=== PATIENT | male | born 1970 | race Caucasian/White ===

== ENCOUNTER 2018-07-20 23:57 | Inpatient (IN) | payer OTHER ==
--- NOTE | 2018-07-21 00:02 | PDOC ---
History of Present Illness - General Chief Complaint: Shortness of Breath Stated Complaint: SOB/ANXIETY - History of Present Illness Initial Comments: This 48-year-old man with a history of HTN/DM (neither treated for the last year since 75 lb intentional weight loss), long-time smoker presents with approximately one month history of intermittent episodes of palpitations/chest and left arm discomfort/anxiety. Episodes can occur during the day or can awaken patient from sleep. Dyspnea has increased in the last few weeks and patient has had cough productive of whitish sputum intermittently for the last week. Shortness of breath worse when patient is supine, better when he is sitting up. He also describes intermittent bilateral ankle swelling, mainly occurring when patient is in the sitting position for prolonged period. Patient believes he has been having panic attacks although prior to a month ago he states he only occasionally had mild anxiety. No recent new stressors or reason for acute anxiety. No recent acute febrile illness. Patient denies previous cardiac history: States that he has always been told that his EKG was "okay" (for example, taken prior to colonoscopy). Patient has had a history of hyperlipidemia but stopped taking his statin medication when his hypertension/DM improved with weight loss. No history of CHF or thromboembolic disease. 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; lives at home with his family Past History - Past Medical History Allergies/Adverse Reactions: Allergies Allergy/AdvReac Type Severity Reaction Status Date / Time No Known Allergies Allergy Unverified 07/20/18 23:58 Home Medications: Ambulatory Orders NK [No Known Home Medication] 07/20/18 Review of Systems - Review of Systems Able to Perform ROS?: Yes Comments:: 12 point review of systems is negative except for what is noted in the history of present illness *Physical Exam - Physical Exam Comments: GENERAL: Adult male, alert and oriented 3, in mild distress; vital signs as noted HEAD: Normal with no signs of trauma. EYES: PERRLA, EOMI, sclera anicteric, conjunctiva clear. ENT: Ears normal, nares patent, oropharynx clear without exudates. Moist mucous membranes. NECK: Normal range of motion, supple without lymphadenopathy, JVD, or masses. LUNGS: Bilateral expiratory wheezing throughout both lung crooks. HEART:Regular rate and rhythm, normal S1 and S2 without murmur, rub or gallop. ABDOMEN:.normal bowel sounds No guarding,tenderness or rebound.No masses No distention. EXTREMITIES: Normal range of motion, no edema. No clubbing or cyanosis. No erythema, or tenderness. NEUROLOGICAL: Cranial nerves II through XII grossly intact. Normal speech. No focal neurological deficits. MUSCULOSKELETAL: Back non-tender to palpation, no CVA tenderness SKIN: Warm, Dry, normal turgor, no rashes or lesions noted. 12-lead electrocardiogram performed and interpreted by me: Normal sinus rhythm at 89 bpm; multifocal PVCs seen; T-wave inversions V5/V6. QTc 469 ms; no previous EKG tracing available for comparison Verbal chest x-ray performed: Preliminary interpretation-borderline cardiomegaly ; prominent pulmonary vasculature with cephalization of flow. No infiltrates/ effusions or other acute abnormalities seen. ED Treatment Course - LABORATORY CBC & Chemistry Diagram: 07/21/18 01:10 07/21/18 01:10 Medical Decision Making - Medical Decision Making This 48-year-old man with multiple risk factors for coronary artery disease but no previous history of acute coronary syndrome or CHF presents with one-month history of intermittent palpitations/chest pain and one week history of dyspnea/ cough productive of whitish sputum. Exam notable for expiratory wheezing bilaterally; there is minimal ankle edema bilaterally. EKG notable for T-wave inversions laterally and PVCs but no other acute findings (no previous EKG tracing available) Laboratory evaluation notable for BUN of 26 /creatinine 1.3. Potassium is normal at 4.2; CBC is unremarkable BNP of 1479; troponin is elevated 0.09. D- dimer is also mildly elevated at 674. Lasix 40mg IV given Clinical presentation most consistent with evidence of CHF and elevated troponin. Although troponin may be reflective of demand ischemia, patient will need admission for further evaluation of his dyspnea/treatment of CHF and serial enzymes to evaluate for acute ischemic process. 07/21/18 03:41 Case discussed with of [facility] hospitalist service. Patient will be admitted to telemetry under [facility] service. Repeat troponin scheduled for 4 AM. Meanwhile, patient will have CT angiogram to fully rule out pulmonary embolism and to evaluate CHF/other reasons for patient's progressive dyspnea. Brisk diuresis (approximately 2.5 L) after Lasix 40 mg IV 07/21/18 04:43 CT angiogram performed. Patient states that he had mild panic attack that resolved spontaneously during the study. He then experienced some nausea which resolved after several minutes. No increase in shortness of breath, lip/tongue swelling, rash noted. Patient notes significant decrease in dyspnea/chest pressure since diuresis. 07/21/18 05:59 Repeat troponin stable at 0.10 CT angiogram preliminary reading by Imaging account resolution expert: No evidence of pulmonary emboli there are small bilateral pleural effusions (greater on right) , basilar areas of atelectasis with minimal paraseptal emphysema. No other significant findings. The patient continues to be more comfortable without chest pressure/pain, shortness of breath or other new symptoms. informed of findings and patient's clinical condition. Patient will be admitted here at [facility], telemetry bed([id number] 07/21/18 06:08 Dr. Grant, cardiology contacted and case discussed with him. Dr. Rod or from the group will see the patient later this morning. The patient informed of findings; shortness of breath continues to be better than on admission. He states that he was awakened earlier with another panic attack. He is also bothered by abdominal wall spasms. Patient will be given Xanax 0.5 mg now for anxiety/panic attack *DC/Admit/Observation/Transfer Diagnosis at time of Disposition: Elevated troponin CHF (congestive heart failure) Qualifiers: Heart failure type: unspecified Heart failure chronicity: acute Qualified Code( s): I50.9 - Heart failure, unspecified - Discharge Dispostion Condition at time of disposition: Stable Decision to Admit order: Yes - Referrals - Patient Instructions - Post Discharge Activity
[2018-07-21 01:48] LABS: BASO % 0.6 % (0-2.0); EOS % 2.2 % (0-4.5); HEMATOCRIT 40.7 % (35.4-49); HEMOGLOBIN 14.7 GM/dL (11.7-16.9); LYMPH % 31.8 % (8-40); MCH 33.3 pg (25.7-33.7); MEAN CELL VOLUME 92.3 fl (80-96); MEAN PLT VOLUME 9.9 fl (7.5-11.1); MONO % 9.3 % (3.8-10.2); NEUT % 56.1 % (42.8-82.8); PLATELET COUNT 138 K/MM3 (134-434); RBC 4.41 M/mm3 (4.00-5.60); RDW 13.7 % (11.9-15.9); WHITE BLOOD COUNT 6.8 K/mm3 (4.0-10.0)
[2018-07-21 01:52] LABS: URINE APPEARANCE CLEAR; URINE BILIRUBIN NEGATIVE (<2.0 mg/dL); URINE COLOR LTYELLOW; URINE GLUCOSE (UA) NEGATIVE (NEGATIVE); URINE KETONE NEGATIVE (NEGATIVE); URINE LEUK ESTERASE NEGATIVE (NEGATIVE); URINE NITRITE NEGATIVE (NEGATIVE); URINE PROTEIN NEGATIVE (NEGATIVE)
[2018-07-21 02:03] LABS: INR 1.06 (0.83-1.09); PROTHROMBIN TIME (PATIENT) 12.5 SEC (9.7-13.0)
[2018-07-21 02:16] LABS: ALBUMIN 3.7 g/dl (3.4-5.0); ALK PHOS 89 U/L (45-117); ANION GAP 7 MMOL/L (8-16); BILIRUBIN,TOTAL 0.6 mg/dL (0.2-1); BLOOD UREA NITROGEN 26 mg/dL (7-18); CALCIUM 8.3 mg/dL (8.5-10.1); CHLORIDE 110 mmol/L (98-107); CO2 23 mmol/L (21-32); CREATININE 1.3 mg/dL (0.55-1.3); GLUCOSE,RANDOM 82 mg/dL (74-106); POTASSIUM 4.2 mmol/L (3.5-5.1); SGOT/AST 22 U/L (15-37); SGPT/ALT 52 U/L (13-61); SODIUM 140 mmol/L (136-145); TOT PROT 6.2 g/dl (6.4-8.2)
[2018-07-21] MEDS ORDERED: FUROSEMIDE 40 MG/4 ML INJECTABLE VIAL IVPUSH ONE (02:20)
[2018-07-21] MEDS ORDERED: FUROSEMIDE 40 MG/4 ML INJECTABLE VIAL ONE (02:22)
[2018-07-21] MEDS ORDERED: ASPIRIN 81 MG CHEWABLE TABLETS PO ONE (02:33)
[2018-07-21] MEDS ORDERED: ASPIRIN 81 MG CHEWABLE TABLETS ONE (03:11)
[2018-07-21] MEDS ORDERED: ALPRAZolam 0.25 MG TABLET PO ONE ×2 (06:08→22:11)
[2018-07-21] MEDS ORDERED: ALPRAZolam 0.25 MG TABLET ONE (06:12)
--- NOTE | 2018-07-21 08:50 | HP ---
CHIEF COMPLAINT: Shortness of breath PCP: Dr. Mejia HISTORY OF PRESENT ILLNESS: 48 year-old male with a PMH significant for HTN, HLD, NIDDM, addiction to pain medications, anxiety/panic disorder, and current smoker. Patient presented to the ED with a complaint of shortness of breath. Patient reports that about two weeks ago he starting coughing up large amounts of clear sputum. He felt like he could not take a deep breath, could not lie flat, became dyspneic on exertion , and he noticed dependent positional lower extremity edema. He has experienced chest pain and palpitations for months but he has attributed these symptoms to his panic disorder. Over the past year the patient lost 75 pounds and stopped taking his diabetic medications and lisinopril that he had been on. Patient denies fever, sweats, chills. 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 Smoking: current every day Alcohol: occasional Drugs: marijuna every few days Family History: Allergies No Known Allergies Allergy (Unverified 07/20/18 23:58) HOME MEDICATIONS: Home Medications Medication Instructions Recorded NK [No Known Home Medication] 07/20/18 REVIEW OF SYSTEMS CONSTITUTIONAL: Absent: fever, chills, diaphoresis, generalized weakness, malaise, loss of appetite, weight change HEENT: Absent: rhinorrhea, nasal congestion, throat pain, throat swelling, difficulty swallowing, mouth swelling, ear pain, eye pain, visual changes CARDIOVASCULAR: +chest pain, palpitations, SOB, [place], lower extremity edema Absent: chest pain, syncope, palpitations, irregular heart rate, lightheadedness , peripheral edema RESPIRATORY: Absent: cough, shortness of breath, dyspnea with exertion, orthopnea, wheezing, stridor, hemoptysis GASTROINTESTINAL: Absent: abdominal pain, abdominal distension, nausea, vomiting, diarrhea, constipation, melena, hematochezia GENITOURINARY: Absent: dysuria, frequency, urgency, hesitancy, hematuria, flank pain, genital pain MUSCULOSKELETAL: Absent: myalgia, arthralgia, joint swelling, back pain, neck pain SKIN: Absent: rash, itching, pallor HEMATOLOGIC/IMMUNOLOGIC: Absent: easy bleeding, easy bruising, lymphadenopathy, frequent infections ENDOCRINE: Absent: unexplained weight gain, unexplained weight loss, heat intolerance, cold intolerance NEUROLOGIC: Absent: headache, focal weakness or paresthesias, dizziness, unsteady gait, seizure, mental status changes, bladder or bowel incontinence PSYCHIATRIC: +anxiety, panic disorder Absent: depression, suicidal or homicidal ideation, hallucinations. PHYSICAL EXAMINATION Vital Signs - 24 hr 07/20/18 07/21/18 07/21/18 23:59 03:17 06:14 Temperature 98.2 F 97.7 F Pulse Rate 99 H Pulse Rate [ 70 86 Right Radial] Respiratory 20 18 18 Rate Blood Pressure 112/95 Blood Pressure 104/84 104/77 [Left Arm] O2 Sat by Pulse 98 95 97 Oximetry (%) GENERAL: Awake, alert, and fully oriented, in no acute distress. HEAD: Normal with no signs of trauma. EYES: Pupils equal, round and reactive to light, extraocular movements intact, sclera anicteric, conjunctiva clear. No lid lag. EARS, NOSE, THROAT: Ears normal, nares patent, oropharynx clear without exudates. Moist mucous membranes. NECK: Normal range of motion, supple without lymphadenopathy, JVD, or masses. LUNGS: Breath sounds equal, clear to auscultation bilaterally. No wheezes, and no crackles. No accessory muscle use. HEART: Regular rate and rhythm, S1 and S2 ABDOMEN: Soft, nontender, not distended, no guarding, no rebound MUSCULOSKELETAL: Normal range of motion at all joints. No bony deformities or tenderness. No CVA tenderness. UPPER EXTREMITIES: 2+ pulses, warm, well-perfused. No cyanosis. No clubbing. No peripheral edema. LOWER EXTREMITIES: 2+ pulses, warm, well-perfused. No calf tenderness. No peripheral edema. NEUROLOGICAL: Cranial nerves II-XII intact. Normal speech. Normal gait. Laboratory Results - last 24 hr 07/21/18 07/21/18 07/21/18 01:00 01:07 01:07 WBC RBC Hgb Hct MCV MCH MCHC RDW Plt Count MPV Absolute Neuts (auto) Neutrophils % Lymphocytes % Monocytes % Eosinophils % Basophils % Nucleated RBC % PT with INR INR D-Dimer 674 H Sodium Potassium Chloride Carbon Dioxide Anion Gap BUN Creatinine Creat Clearance w eGFR Random Glucose Calcium Total Bilirubin AST ALT Alkaline Phosphatase Creatine Kinase Troponin I B-Natriuretic Peptide Cancelled Total Protein Albumin Urine Color Ltyellow Urine Appearance Clear Urine pH 5.0 Ur Specific [place] 1.025 Urine Protein Negative Urine Glucose (UA) Negative Urine Ketones Negative Urine Blood Negative Urine Nitrite Negative Urine Bilirubin Negative Urine Urobilinogen 2.0 Ur Leukocyte Esterase Negative 07/21/18 07/21/18 07/21/18 01:10 01:10 01:10 WBC 6.8 RBC 4.41 Hgb 14.7 Hct 40.7 MCV 92.3 MCH 33.3 MCHC 36.0 H RDW 13.7 Plt Count 138 MPV 9.9 Absolute Neuts (auto) 3.8 Neutrophils % 56.1 Lymphocytes % 31.8 Monocytes % 9.3 Eosinophils % 2.2 Basophils % 0.6 Nucleated RBC % 0 PT with INR 12.50 INR 1.06 D-Dimer Sodium 140 Potassium 4.2 Chloride 110 H Carbon Dioxide 23 Anion Gap 7 L BUN 26 H Creatinine 1.3 Creat Clearance w eGFR 59.17 Random Glucose 82 Calcium 8.3 L Total Bilirubin 0.6 AST 22 ALT 52 Alkaline Phosphatase 89 Creatine Kinase 141 Troponin I 0.09 H B-Natriuretic Peptide 1479.0 H Total Protein 6.2 L Albumin 3.7 Urine Color Urine Appearance Urine pH Ur Specific [place] Urine Protein Urine Glucose (UA) Urine Ketones Urine Blood Urine Nitrite Urine Bilirubin Urine Urobilinogen Ur Leukocyte Esterase 07/21/18 03:55 WBC RBC Hgb Hct MCV MCH MCHC RDW Plt Count MPV Absolute Neuts (auto) Neutrophils % Lymphocytes % Monocytes % Eosinophils % Basophils % Nucleated RBC % PT with INR INR D-Dimer Sodium Potassium Chloride Carbon Dioxide Anion Gap BUN Creatinine Creat Clearance w eGFR Random Glucose Calcium Total Bilirubin AST ALT Alkaline Phosphatase Creatine Kinase Troponin I 0.10 H B-Natriuretic Peptide Total Protein Albumin Urine Color Urine Appearance Urine pH Ur Specific [place] Urine Protein Urine Glucose (UA) Urine Ketones Urine Blood Urine Nitrite Urine Bilirubin Urine Urobilinogen Ur Leukocyte Esterase ASSESSMENT/PLAN: 48 year-old male with a PMH significant for HTN, HLD, NIDDM, addiction to pain medications, anxiety/panic disorder, and current smoker. Admitted for newly diagnosed systolic heart failure. Acute systolic heart failure --07/21 Echo: LV moderate to severely reduced, EF 30-35%, moderate to severe global hypokinesis; RV normal; LAE; mild MR; trace TR --07/21 CTA: small bilateral pleural effusions, increased interstitial markings --Lasix IV 40mg BID Demand ischemia --flat-trending troponins, 0.09-->0.10-->0.06 NIDDM --has been off meds for months; formerly took JanumetMartinance --Novolog sliding scale coverage --HgbA1C drawn, problem with sample, reorder Hypertension --BP stable --carvedilol, losartan Hyperlipidemia --continue Lipitor Anxiety Panic disorder --Xanax PRN Addiction to pain medication --started 2011, was on suboxone until January 2018 --utox +marijuana FEN Fluids: PO intake adequate Electrolytes: replete as indicated Nutrition: diabetic DVT prophylaxis: subq heparin Dispo: continues to require inpatient care. Full code. Visit type - Emergency Visit Emergency Visit: Yes ED Registration Date: 07/21/18 Care time: The patient presented to the Emergency Department on the above date and was hospitalized for further evaluation of their emergent condition. - New Patient This patient is new to me today: Yes Date on this admission: 07/22/18 - Critical Care Critical Care patient: No
[2018-07-21 08:58] VITALS: BMI 28.5
--- NOTE | 2018-07-21 09:55 | CON.CARD ---
Consult Consult Specialty:: Cardiology Referred by:: Hospitalist Reason for Consultation:: Cardiac evaluation - History of Present Illness Chief Complaint: Shortness of breath History of Present Illness: Patient is a 48 year old male with underlying history of type 2 DM (now off medication, previously took Janumet and Jardiance), HTN and hypercholeterolemia (not on lipid lowering medication) who presents with worsening shortness of breath, orthopnea, chest discomfort, left arm discomfort, palpitations and anxiety. He states that these symptoms started about 1 week and a half ago, but has gotten worse prompting him to be admitted. He also complains of productive cough with brownish sputum. He also describes slight bilateral ankle swelling which has gotten better this morning, but he again feels short of breath this am. He denies paroxysmal nocturnal dyspnea. He denies fever or chills. He denies nausea, vomiting, diarrhea or abdominal pain. He denies headache or lightheadedness. Troponin was slightly elevated. 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) - Alcohol/Substance Use Hx Alcohol Use: No History of Substance Use: reports: Marijuana - Smoking History Smoking history: Current every day smoker Have you smoked in the past 12 months: Yes Aproximately how many cigarettes per day: 0 Home Medications - Allergies Allergies/Adverse Reactions: Allergies Allergy/AdvReac Type Severity Reaction Status Date / Time No Known Allergies Allergy Unverified 07/20/18 23:58 - Home Medications Home Medications: Ambulatory Orders NK [No Known Home Medication] 07/20/18 Family Disease History - Family Disease History Family Disease History: Diabetes: Father, Heart Disease: Grandparent ([place]) Review of Systems - Review of Systems Constitutional: denies: Chills, Fever Cardiovascular: reports: Chest Pain, Palpitations, Shortness of Breath Respiratory: reports: Cough, Orthopnea, SOB, SOB on Exertion. denies: Hemoptysis, PND Gastrointestinal: denies: Abdominal Pain, Constipation, Diarrhea, Melena, Nausea , Rectal Bleeding, Vomiting Genitourinary: denies: Dysuria, Hematuria Neurological: denies: Dizziness, Headache, Seizure Vital Signs: Vital Signs Temperature 97.8 F 07/21/18 08:43 Pulse Rate 90 07/21/18 08:43 Respiratory Rate 16 07/21/18 08:43 Blood Pressure 102/86 07/21/18 08:43 O2 Sat by Pulse Oximetry (%) 97 07/21/18 08:43 Eyes: Yes: PERRL HENT: Yes: Atraumatic Neck: Yes: Supple Respiratory: Yes: Cough, Orthopnea, Rhonchi, SOB Gastrointestinal: Yes: Normal Bowel Sounds, Soft. No: Tenderness Cardiovascular: Yes: Regular Rate and Rhythm JVD: No Carotid Bruit: No PMI: Non-Displaced Heart Sounds: Yes: S1 Murmur: No: Systolic Murmur, Diastolic Murmur Edema: Yes Edema: LLE: Trace, RLE: Trace - Other Data Labs, Other Data: CBC, BMP 07/21/18 01:10 07/21/18 01:10 INR, PTT INR 1.06 (0.83-1.09) 07/21/18 01:10 Troponin, BNP 07/21/18 07/21/18 07/21/18 01:07 01:10 03:55 Troponin I 0.09 H 0.10 H B-Natriuretic Peptide Cancelled 1479.0 H Laboratory Results - last 24 hr 07/21/18 07/21/18 07/21/18 01:00 01:07 01:07 WBC RBC Hgb Hct MCV MCH MCHC RDW Plt Count MPV Absolute Neuts (auto) Neutrophils % Lymphocytes % Monocytes % Eosinophils % Basophils % Nucleated RBC % PT with INR INR D-Dimer 674 H Sodium Potassium Chloride Carbon Dioxide Anion Gap BUN Creatinine Creat Clearance w eGFR Random Glucose Calcium Total Bilirubin AST ALT Alkaline Phosphatase Creatine Kinase Troponin I B-Natriuretic Peptide Cancelled Total Protein Albumin Urine Color Ltyellow Urine Appearance Clear Urine pH 5.0 Ur Specific [place] 1.025 Urine Protein Negative Urine Glucose (UA) Negative Urine Ketones Negative Urine Blood Negative Urine Nitrite Negative Urine Bilirubin Negative Urine Urobilinogen 2.0 Ur Leukocyte Esterase Negative 07/21/18 07/21/18 07/21/18 01:10 01:10 01:10 WBC 6.8 RBC 4.41 Hgb 14.7 Hct 40.7 MCV 92.3 MCH 33.3 MCHC 36.0 H RDW 13.7 Plt Count 138 MPV 9.9 Absolute Neuts (auto) 3.8 Neutrophils % 56.1 Lymphocytes % 31.8 Monocytes % 9.3 Eosinophils % 2.2 Basophils % 0.6 Nucleated RBC % 0 PT with INR 12.50 INR 1.06 D-Dimer Sodium 140 Potassium 4.2 Chloride 110 H Carbon Dioxide 23 Anion Gap 7 L BUN 26 H Creatinine 1.3 Creat Clearance w eGFR 59.17 Random Glucose 82 Calcium 8.3 L Total Bilirubin 0.6 AST 22 ALT 52 Alkaline Phosphatase 89 Creatine Kinase 141 Troponin I 0.09 H B-Natriuretic Peptide 1479.0 H Total Protein 6.2 L Albumin 3.7 Urine Color Urine Appearance Urine pH Ur Specific [place] Urine Protein Urine Glucose (UA) Urine Ketones Urine Blood Urine Nitrite Urine Bilirubin Urine Urobilinogen Ur Leukocyte Esterase Sinus rhythm with PVC, T abnormality lateral leads Echo: Pending Imaging - Results Chest X-ray: Report Reviewed (Increased interstitial marking) Cat Scan: Report Reviewed (Chest CT: No pulmonary embolism. 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 Diabetes mellitus complication status: without complication Qualified Code(s): E11.9 - Type 2 diabetes mellitus without complications (5) Orthopnea Code(s): R06.01 - ORTHOPNEA (6) Dyspnea Code(s): R06.00 - DYSPNEA, UNSPECIFIED Qualifiers: Dyspnea type: shortness of breath Qualified Code(s): R06.02 - Shortness of breath; R06.00 - Dyspnea, unspecified; R06.01 - Orthopnea (7) Chest pain Code(s): R07.9 - CHEST PAIN, UNSPECIFIED Qualifiers: Chest pain type: unspecified Qualified Code(s): R07.9 - Chest pain, unspecified (8) Anxiety Code(s): F41.9 - ANXIETY DISORDER, UNSPECIFIED (9) CHF (congestive heart failure) Code(s): I50.9 - HEART FAILURE, UNSPECIFIED Qualifiers: Heart failure type: diastolic Heart failure chronicity: acute Qualified Code(s): I50.31 - Acute diastolic (congestive) heart failure (10) Elevated troponin Code(s): R74.8 - ABNORMAL LEVELS OF OTHER SERUM ENZYMES Assessment/Plan 1. Acute on chronic LV failure probably diastolic failure with class 2 NYHA classification failure 2. Elevated troponin due to demand ischemia 3. Abnormal ECG and above suggests CAD 4. DM 5. HTN 6. Hypercholesterolemia 7. Anxiety PLAN: 1. Trend troponin to check peak 2. Diuretics - IV Lasix and monitor renal function and electrolytes 3. ASA 4. Resume Lisinopril and titrate dose 5. Statin (Atorvastatin) and check fasting lipid panel 6. Echocardiography to assess LV/RV and valvular function 7. Further cardiac work up including possible nuclear MPI or invasive testing with cardiac cath is to be decided once euvolemic Further plans are to follow Niall Rod MD
[2018-07-21] MEDS ORDERED: ASPIRIN 81 MG CHEWABLE TABLETS PO SCH (10:00)
[2018-07-21] MEDS ORDERED: ATORVASTATIN CA 40 MG TABLET (FP) PO ONE (10:00)
--- NOTE | 2018-07-21 10:59 | EKG ---
Test Reason : Blood Pressure : / mmHG Vent. Rate : 089 BPM Atrial Rate : 089 BPM P-R Int : 174 ms QRS Dur : 094 ms QT Int : 386 ms P-R-T Axes : 067 042 143 degrees QTc Int : 469 ms SINUS RHYTHM WITH FREQUENT PREMATURE VENTRICULAR COMPLEXES PROLONGED QT ABNORMAL ECG NO PREVIOUS ECGS AVAILABLE Confirmed by SAHARA JALLOH, KASEY ([id number]) on 07/21/2018 10:58:50 AM Referred By: MD YE Confirmed By:KASEY SHOEMAKER MD
[2018-07-21 11:10] LABS: CHOLESTEROL 256 mg/dl; HDL CHOLESTEROL 42 mg/dl (29-89); LDL CHOLESTEROL (ONLY DFH) 191 mg/dl; TRIGLYCERIDES 114 mg/dl (35-160)
[2018-07-21] MEDS: FUROSEMIDE 40 MG/4 ML INJECTABLE VIAL IVPUSH SCH (13:59)
[2018-07-21] MEDS ORDERED: ALBUTEROL SO4 2.5/IPRATROPIUM 0.5 INH SOL 3 ML VIAL.NEB. NEB ONE (14:15)
[2018-07-21] MEDS ORDERED: INSULIN (NOVOLOG) ASPART 100 UNITS/ML 10ML VIAL SQ SCH (16:30)
[2018-07-21] MEDS ORDERED: ALBUTEROL SO4 2.5/IPRATROPIUM 0.5 INH SOL 3 ML VIAL.NEB. NEB PRN (16:38)
--- NOTE | 2018-07-21 17:21 | ECHO ---
Name: MARY LANCASTER Exam:Adult Echocardiogram Study Date: 07/21/2018 04:34 PM Age: 48 yrs Reason For Study: Chest pain Height: 72 in Weight: 209 lb BSA: 2.2 m2 MMode/2D Measurements & Calculations IVSd: 0.97 cm LA dimension: 4.8 cm LVIDd: 5.6 cm LVIDs: 4.4 cm LVPWd: 0.95 cm EDV(Teich): 154.0 ml ESV(Teich): 90.0 ml Doppler Measurements & Calculations MV E max joseph: 108.1 cm/sec MV A max joseph: 28.8 cm/sec MV dec slope: 869.0 cm/sec2 MV E/A: 3.8 MR max joseph: 188.4 cm/sec TR max joseph: 209.4 cm/sec MR max P.2 mmHg TR max P.5 mmHg Procedure A complete two-dimensional transthoracic echocardiogram was performed (2D, M-mode, Doppler and color flow Doppler). Left Ventricle The left ventricle is normal in size. Left ventricular systolic function is moderate to severely redu tee. Ejection Fraction = 30-35%. There is moderate to severe global hypokinesis of the left ventricle. Right Ventricle The right ventricle is normal size. The right ventricular systolic function is normal. Atria The left atrium is moderately dilated. Right atrial size is normal. Mitral Valve There is mild mitral annular calcification. There is mild mitral regurgitation. Tricuspid Valve The tricuspid valve is normal in structure and function. There is trace tricuspid regurgitation. Righ t ventricular systolic pressure is normal. Aortic Valve The aortic valve is normal in structure and function. No aortic regurgitation is present. Pulmonic Valve The pulmonic valve is not well visualized. Great Vessels The aortic root is normal size. Pericardium/Pleura There is no pericardial effusion. Interpretation Summary The left ventricle is normal in size. Left ventricular systolic function is moderate to severely reduced. There is moderate to severe global hypokinesis of the left ventricle. Ejection Fraction = 30-35%. The right ventricular systolic function is normal. The left atrium is moderately dilated. Right atrial size is normal. There is mild mitral annular calcification. There is mild mitral regurgitation. There is trace tricuspid regurgitation. Right ventricular systolic pressure is normal. There is no pericardial effusion. Previous study is not available for comparison Niall Rod MD 07/21/2018 05:20 PM
[2018-07-21] MEDS: CARVEDILOL 3.125 MG TABLET (FP) PO SCH ×2 (17:53→21:09)
[2018-07-21] MEDS: LOSARTAN POTASSIUM 25 MG TABLET PO SCH (17:53)
[2018-07-21] MEDS: INSULIN SLIDING SCALE (NOVOLOG) 1 VIAL SQ SCH (21:08)
[2018-07-22] MEDS: HEPARIN NA (PORCINE) 5,000 UNITS/ML 1ML VIAL SQ SCH ×3 (06:15→21:24)
[2018-07-22] MEDS: INSULIN SLIDING SCALE (NOVOLOG) 1 VIAL SQ SCH ×4 (06:15→21:52)
[2018-07-22] MEDS: FUROSEMIDE 40 MG/4 ML INJECTABLE VIAL IVPUSH SCH ×2 (06:15→13:20)
[2018-07-22 08:13] LABS: HEMATOCRIT 48.6 % (35.4-49); MCH 31.4 pg (25.7-33.7); MEAN CELL VOLUME 95.2 fl (80-96); MEAN PLT VOLUME 9.8 fl (7.5-11.1); PLATELET COUNT 157 K/MM3 (134-434); RBC 5.11 M/mm3 (4.00-5.60); RDW 12.8 % (11.9-15.9)
--- NOTE | 2018-07-22 08:22 | PN ---
Physical Exam: SUBJECTIVE: Patient seen and examined OBJECTIVE: Vital Signs Period Temp Pulse Resp BP Sys/Ceja Pulse Ox Last 24 Hr 97.7 F-98.7 F 79-102 16-18 93-110/57-86 97-97 GENERAL: Awake, alert, and fully oriented, in no acute distress. HEAD: Normal with no signs of trauma. EYES: Pupils equal, round and reactive to light, extraocular movements intact, sclera anicteric, conjunctiva clear. No lid lag. EARS, NOSE, THROAT: Ears normal, nares patent, oropharynx clear without exudates. Moist mucous membranes. NECK: Normal range of motion, supple without lymphadenopathy, JVD, or masses. LUNGS: Breath sounds equal, clear to auscultation bilaterally. No wheezes, and no crackles. No accessory muscle use. HEART: Regular rate and rhythm, S1 and S2 ABDOMEN: Soft, nontender, not distended, no guarding, no rebound MUSCULOSKELETAL: Normal range of motion at all joints. No bony deformities or tenderness. No CVA tenderness. UPPER EXTREMITIES: 2+ pulses, warm, well-perfused. No cyanosis. No clubbing. No peripheral edema. LOWER EXTREMITIES: 2+ pulses, warm, well-perfused. No calf tenderness. No peripheral edema. NEUROLOGICAL: Cranial nerves II-XII intact. Normal speech. Normal gait. Laboratory Results - last 24 hr 07/21/18 07/21/18 07/21/18 10:00 10:10 10:10 WBC RBC Hgb Hct MCV MCH MCHC RDW Plt Count MPV POC Glucometer Magnesium 2.0 Troponin I 0.06 Triglycerides 114 Cholesterol 256 Total LDL Cholesterol 191 HDL Cholesterol 42 Active Medications Generic Name Dose Route Start Last Admin Trade Name Freq PRN Reason Stop Dose Admin Albuterol/Ipratropium 1 amp 07/21/18 16:38 Duoneb - NEB Q6H PRN SHORTNESS OF BREATH Aspirin 81 mg 07/22/18 10:00 Asa - PO DAILY ROEL Atorvastatin Calcium 40 mg 07/22/18 22:00 Lipitor - PO HS ROEL Carvedilol 3.125 mg 07/21/18 17:25 07/21/18 21:09 Coreg - PO 3.125 mg BID ROEL Administration Furosemide 40 mg 07/21/18 14:00 07/22/18 06:15 Lasix Injection - IVPUSH 40 mg BID@0600,1400 ROEL Administration Heparin Sodium (Porcine) 5,000 unit 07/22/18 06:00 07/22/18 06:15 Heparin - SQ 5,000 unit TID ROEL Administration Insulin Aspart 1 vial 07/21/18 16:49 07/22/18 06:15 Novolog Vial Sliding Scale - SQ Not Given ACHS [facility] Protocol Losartan Potassium 25 mg 07/21/18 17:30 07/21/18 17:53 Cozaar - PO 25 mg DAILY ROEL Administration ASSESSMENT/PLAN: 48 year-old male with a PMH significant for HTN, HLD, NIDDM, addiction to pain medications, anxiety/panic disorder, and current smoker. Admitted for newly diagnosed systolic heart failure. 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 Full code. Visit type - Emergency Visit Emergency Visit: Yes ED Registration Date: 07/21/18 Care time: The patient presented to the Emergency Department on the above date and was hospitalized for further evaluation of their emergent condition. - New Patient This patient is new to me today: No - Critical Care Critical Care patient: No
[2018-07-22 08:27] LABS: ANION GAP 8 MMOL/L (8-16); BLOOD UREA NITROGEN 21 mg/dl (7-18); CALCIUM 9.3 mg/dl (8.4-10.2); CHLORIDE 103 mmol/L (98-107); CO2 23 mmol/L (22-28); CREATININE 1.1 mg/dl (0.6-1.3); GLUCOSE,RANDOM 135 mg/dl (74-106); POTASSIUM 3.8 mmol/L (3.5-5.1); SODIUM 134 mmol/L (136-145)
[2018-07-22] MEDS: ASPIRIN 81 MG CHEWABLE TABLETS PO SCH (09:20)
[2018-07-22] MEDS: CARVEDILOL 3.125 MG TABLET (FP) PO SCH ×2 (09:20→21:24)
[2018-07-22] MEDS: LOSARTAN POTASSIUM 25 MG TABLET PO SCH (09:20)
--- NOTE | 2018-07-22 09:36 | PN ---
Progress Note, Physician Chief Complaint: Feels better this AM with less SOB History of Present Illness: Patient was seen and examined. Awake and alert. Chart was reviewed Denies chest pain, less SOB and no palpitations - Current Medication List Current Medications: Active Medications Albuterol/Ipratropium (Duoneb -) 1 amp NEB Q6H PRN PRN Reason: SHORTNESS OF BREATH Aspirin (Asa -) 81 mg PO DAILY [facility] Last Admin: 07/22/18 09:20 Dose: 81 mg Atorvastatin Calcium (Lipitor -) 40 mg PO HS [facility] Carvedilol (Coreg -) 3.125 mg PO BID [facility] Last Admin: 07/22/18 09:20 Dose: 3.125 mg Furosemide (Lasix Injection -) 40 mg IVPUSH BID@0600,1400 [facility] Last Admin: 07/22/18 06:15 Dose: 40 mg Heparin Sodium (Porcine) (Heparin -) 5,000 unit SQ TID [facility] Last Admin: 07/22/18 06:15 Dose: 5,000 unit Insulin Aspart (Novolog Vial Sliding Scale -) 1 vial SQ ACHS [facility]; Protocol Last Admin: 07/22/18 06:15 Dose: Not Given Losartan Potassium (Cozaar -) 25 mg PO DAILY [facility] Last Admin: 07/22/18 09:20 Dose: 25 mg - Objective Vital Signs: Vital Signs Temperature 97.7 F 07/22/18 05:24 Pulse Rate 79 07/21/18 22:00 Respiratory Rate 18 07/22/18 05:24 Blood Pressure 101/69 07/22/18 05:24 O2 Sat by Pulse Oximetry (%) 97 07/21/18 21:00 Eyes: Yes: PERRL HENT: Yes: Atraumatic Neck: Yes: Supple Cardiovascular: Yes: Regular Rate and Rhythm, S1, S2 Respiratory: Yes: CTA Bilaterally Gastrointestinal: Yes: Normal Bowel Sounds, Soft. No: Tenderness Edema: No Additional Findings/Remarks: - Review of Systems Constitutional: denies: Chills, Fever Cardiovascular: reports: Chest Pain, Palpitations, Shortness of Breath Respiratory: reports: Cough, Orthopnea, SOB, SOB on Exertion. denies: Hemoptysis, PND Gastrointestinal: denies: Abdominal Pain, Constipation, Diarrhea, Melena, Nausea , Rectal Bleeding, Vomiting Genitourinary: denies: Dysuria, Hematuria Neurological: denies: Dizziness, Headache, Seizure Labs: CBC, BMP 07/22/18 07:43 07/22/18 07:43 INR, PTT INR 1.06 (0.83-1.09) 07/21/18 01:10 Problem List - Problems (1) Demand ischemia Code(s): I24.8 - OTHER FORMS OF ACUTE ISCHEMIC HEART DISEASE (2) HTN (hypertension) Code(s): I10 - ESSENTIAL (PRIMARY) HYPERTENSION Qualifiers: Hypertension type: essential hypertension Qualified Code(s): I10 - Essential (primary) hypertension (3) Hypercholesterolemia Code(s): E78.00 - PURE HYPERCHOLESTEROLEMIA, UNSPECIFIED (4) Type 2 diabetes mellitus Code(s): E11.9 - TYPE 2 DIABETES MELLITUS WITHOUT COMPLICATIONS Qualifiers: Diabetes mellitus paperhanger supervisor insulin use: without paperhanger supervisor use Diabetes mellitus complication status: without complication Qualified Code(s): E11.9 - Type 2 diabetes mellitus without complications (5) Orthopnea Code(s): R06.01 - ORTHOPNEA (6) Dyspnea Code(s): R06.00 - DYSPNEA, UNSPECIFIED Qualifiers: Dyspnea type: shortness of breath Qualified Code(s): R06.02 - Shortness of breath; R06.00 - Dyspnea, unspecified; R06.01 - Orthopnea (7) Chest pain Code(s): R07.9 - CHEST PAIN, UNSPECIFIED Qualifiers: Chest pain type: unspecified Qualified Code(s): R07.9 - Chest pain, unspecified (8) Anxiety Code(s): F41.9 - ANXIETY DISORDER, UNSPECIFIED (9) CHF (congestive heart failure) Code(s): I50.9 - HEART FAILURE, UNSPECIFIED Qualifiers: Heart failure type: diastolic Heart failure chronicity: acute Qualified Code(s): I50.31 - Acute diastolic (congestive) heart failure (10) Elevated troponin Code(s): R74.8 - ABNORMAL LEVELS OF OTHER SERUM ENZYMES Assessment/Plan 1. Acute on chronic LV failure systolic +/- diastolic failure with class 2 NYHA classification failure 2. Elevated troponin due to demand ischemia 3. Abnormal ECG with dilated cardiomyopathy rule out CAD 4. DM 5. HTN 6. Hypercholesterolemia 7. Anxiety PLAN: 1. Trend troponin peaked at 0.1 2. Diuretics - IV Lasix and monitor renal function and electrolytes. Continue Carvedilol and Losartan and uptitrate. Consider Entresto if clinically feasible 3. ASA 4. Statin (Atorvastatin) and check fasting lipid panel 5. Echocardiography was reviewed and result was explained 6. 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
[2018-07-22 09:48] LABS: COCAINE, UR NEGATIVE ng/ml (CUTOFF=300); METHADONE, UR NEGATIVE ng/ml (CUTOFF=300); OPIATES, URI NEGATIVE ng/ml (CUTOFF=300); PHENCYCLIDINE,URINE NEGATIVE ng/ml (CUTOFF=25); URINE AMPHETAMINES NEGATIVE ng/ml (CUTOFF=500); URINE BARBITURATES NEGATIVE ng/ml (CUTOFF=200); URINE BENZODIAZEPINES NEGATIVE ng/ml (CUTOFF=200)
[2018-07-22] MEDS ORDERED: FUROSEMIDE 40 MG/4 ML INJECTABLE VIAL IVPUSH SCH (10:00)
[2018-07-22] MEDS ORDERED: MAGNESIUM 1GM/D5W 100ML - 100 ML IVPB IVPB ONE (10:09)
[2018-07-22] MEDS ORDERED: MAGNESIUM 1GM/D5W - 1 GM/100 ML IVPB IVPB ONE (10:15)
[2018-07-22] MEDS ORDERED: POTASSIUM CHLORIDE TABS 20 MEQ TABLET.ER (FP) PO ONE (11:00)
[2018-07-22] MEDS ORDERED: ATORVASTATIN CA 40 MG TABLET (FP) PO SCH (22:00)
[2018-07-22] MEDS ORDERED: ALPRAZolam 0.25 MG TABLET PO ONE ×2 (23:15→23:25)
[2018-07-23] MEDS: FUROSEMIDE 40 MG/4 ML INJECTABLE VIAL IVPUSH SCH (05:45)
[2018-07-23] MEDS: INSULIN SLIDING SCALE (NOVOLOG) 1 VIAL SQ SCH ×2 (06:10→11:18)
--- NOTE | 2018-07-23 08:12 | PN ---
Physical Exam: SUBJECTIVE: Patient seen and examined. Feels well, no chest pain or dyspnea at rest. Has some pain "at the top of the chest with deep breathing." OBJECTIVE: Vital Signs Period Temp Pulse Resp BP Sys/Ceja Pulse Ox Last 24 Hr 97.8 F-98.2 F 62-93 16-20 84-110/61-67 94-97 GENERAL: The patient is awake, alert, and fully oriented, in no acute distress. HEAD: Normal with no signs of trauma. EYES: PERRL, extraocular movements intact, sclera anicteric, conjunctiva clear. No ptosis. ENT: Ears normal, nares patent, oropharynx clear without exudates, moist mucous membranes. NECK: Trachea midline, full range of motion, supple. LUNGS: Breath sounds equal, clear to auscultation bilaterally, no wheezes, no crackles, no accessory muscle use. HEART: Regular rate and rhythm, S1, S2 without murmur, rub or gallop. ABDOMEN: Soft, nontender, nondistended, normoactive bowel sounds, no guarding, no rebound, no hepatosplenomegaly, no masses. EXTREMITIES: 2+ pulses, warm, well-perfused, no edema. NEUROLOGICAL: Cranial nerves II through XII grossly intact. Normal speech, gait not observed. PSYCH: Normal mood, normal affect. SKIN: Warm, dry, normal turgor, no rashes or lesions noted Laboratory Results - last 24 hr CBCD WBC 7.6 K/mm3 (4.0-10.8) 07/23/18 07:52 RBC 5.19 M/mm3 (4.00-5.60) 07/23/18 07:52 Hgb 16.7 GM/dl (11.7-16.9) 07/23/18 07:52 Hct 49.1 % (35.4-49) H 07/23/18 07:52 MCV 94.5 fl (80-96) 07/23/18 07:52 MCHC 34.1 g/dl (32.0-35.9) 07/23/18 07:52 RDW 12.9 % (11.9-15.9) 07/23/18 07:52 Plt Count 161 K/MM3 (134-434) 07/23/18 07:52 MPV 9.7 fl (7.5-11.1) 07/23/18 07:52 CMP Sodium 138 mmol/L (136-145) 07/23/18 07:52 Potassium 4.4 mmol/L (3.5-5.1) 07/23/18 07:52 Chloride 103 mmol/L (98-107) 07/23/18 07:52 Carbon Dioxide 25 mmol/L (22-28) 07/23/18 07:52 Anion Gap 10 MMOL/L (8-16) 07/23/18 07:52 BUN 26 mg/dl (7-18) H 07/23/18 07:52 Creatinine 1.2 mg/dl (0.6-1.3) 07/23/18 07:52 Creat Clearance w eGFR > 60 (>60) 07/23/18 07:52 Random Glucose 123 mg/dl (74-106) H 07/23/18 07:52 Calcium 9.3 mg/dl (8.4-10.2) 07/23/18 07:52 Total Bilirubin 1.0 mg/dl (0.2-1.0) 07/23/18 07:52 AST 21 U/L (10-42) 07/23/18 07:52 ALT 36 U/L (10-40) 07/23/18 07:52 Alkaline Phosphatase 80 U/L (32-92) 07/23/18 07:52 Total Protein 6.9 g/dl (6.4-8.3) 07/23/18 07:52 Albumin 4.4 g/dl (3.5-5.0) 07/23/18 07:52 CARDIAC ENZYMES Creatine Kinase 141 IU/L (26-308) 07/21/18 01:10 Troponin I 0.06 ng/ml (0.00-0.06) 07/21/18 10:10 Active Medications Generic Name Dose Route Start Last Admin Trade Name Freq PRN Reason Stop Dose Admin Albuterol/Ipratropium 1 amp 07/21/18 16:38 07/22/18 13:20 Duoneb - NEB 1 amp Q6H PRN Administration SHORTNESS OF BREATH Aspirin 81 mg 07/22/18 10:00 07/22/18 09:20 Asa - PO 81 mg DAILY ROEL Administration Atorvastatin Calcium 40 mg 07/22/18 22:00 07/22/18 21:24 Lipitor - PO 40 mg HS ROEL Administration Carvedilol 3.125 mg 07/21/18 17:25 07/22/18 21:24 Coreg - PO 3.125 mg BID ROEL Administration Furosemide 40 mg 07/21/18 14:00 07/23/18 05:45 Lasix Injection - IVPUSH 40 mg BID@0600,1400 ROEL Administration Insulin Aspart 1 vial 07/21/18 16:49 07/23/18 06:10 Novolog Vial Sliding Scale - SQ Not Given ACHS [facility] Protocol Losartan Potassium 25 mg 07/21/18 17:30 07/22/18 09:20 Cozaar - PO 25 mg DAILY ROEL Administration Imaging: Echocardiogram 07/21: Moderate to severe global hypokinesis of the LV. Ef 30-35 %. CTA Chest 07/21: No PE. Bilateral pleural effusions. Mild mediastinal lymphadenopathy. ASSESSMENT/PLAN: 48-year-old male with newly diagnosed dilated cardiomyopathy. Acute on chronic LV systolic and diastolic failure -Continue Lasix, aldactone -For outpatient cardiac catheterization -Start Entresto, continue carvedilol -Continue ASA, atorvastatin -Troponin has normalized -Life Vest pending re-assessment of EF% DISPO: For discharge when Life Vest arrives. Discussed plan at length with patient and stepfather who is a physician.
[2018-07-23 08:17] LABS: BASO % 0.6 % (0-2.0); EOS % 2.5 % (0-4.5); HEMATOCRIT 49.1 % (35.4-49); HEMOGLOBIN 16.7 GM/dl (11.7-16.9); LYMPH % 28.8 % (8-40); MCH 32.2 pg (25.7-33.7); MCHC 34.1 g/dl (32.0-35.9); MEAN CELL VOLUME 94.5 fl (80-96); MEAN PLT VOLUME 9.7 fl (7.5-11.1); MONO % 10.3 % (3.8-10.2); NEUT % 57.8 % (42.8-82.8); PLATELET COUNT 161 K/MM3 (134-434); RBC 5.19 M/mm3 (4.00-5.60); RDW 12.9 % (11.9-15.9); WHITE BLOOD COUNT 7.6 K/mm3 (4.0-10.8)
[2018-07-23 08:32] LABS: ALBUMIN 4.4 g/dl (3.5-5.0); ALK PHOS 80 U/L (32-92); ANION GAP 10 MMOL/L (8-16); BLOOD UREA NITROGEN 26 mg/dl (7-18); CALCIUM 9.3 mg/dl (8.4-10.2); CHLORIDE 103 mmol/L (98-107); CO2 25 mmol/L (22-28); CREATININE 1.2 mg/dl (0.6-1.3); GLUCOSE,RANDOM 123 mg/dl (74-106); MAGNESIUM 2.1 mg/dL (1.8-2.4); POTASSIUM 4.4 mmol/L (3.5-5.1); SGOT/AST 21 U/L (10-42); SGPT/ALT 36 U/L (10-40); SODIUM 138 mmol/L (136-145); TOT PROT 6.9 g/dl (6.4-8.3)
--- NOTE | 2018-07-23 09:50 | PN ---
Progress Note, Physician History of Present Illness: [place], orthopnea, exercise intolerance and chest tightness resolving with diuresis. - Current Medication List Current Medications: Active Medications Albuterol/Ipratropium (Duoneb -) 1 amp NEB Q6H PRN PRN Reason: SHORTNESS OF BREATH Last Admin: 07/22/18 13:20 Dose: 1 amp Aspirin (Asa -) 81 mg PO DAILY [facility] Last Admin: 07/22/18 09:20 Dose: 81 mg Atorvastatin Calcium (Lipitor -) 40 mg PO HS [facility] Last Admin: 07/22/18 21:24 Dose: 40 mg Carvedilol (Coreg -) 3.125 mg PO BID [facility] Last Admin: 07/22/18 21:24 Dose: 3.125 mg Furosemide (Lasix Injection -) 40 mg IVPUSH BID@0600,1400 [facility] Last Admin: 07/23/18 05:45 Dose: 40 mg Insulin Aspart (Novolog Vial Sliding Scale -) 1 vial SQ ACHS [facility]; Protocol Last Admin: 07/23/18 06:10 Dose: Not Given Losartan Potassium (Cozaar -) 25 mg PO DAILY [facility] Last Admin: 07/22/18 09:20 Dose: 25 mg - Objective Vital Signs: Vital Signs Temperature 98.0 F 07/23/18 05:49 Pulse Rate 93 H 07/23/18 05:49 Respiratory Rate 20 07/23/18 05:49 Blood Pressure 102/65 07/23/18 05:49 O2 Sat by Pulse Oximetry (%) 97 07/23/18 05:48 Constitutional: Yes: No Distress, Calm Neck: Yes: Supple Cardiovascular: Yes: Regular Rate and Rhythm Respiratory: Yes: Regular, CTA Bilaterally Gastrointestinal: Yes: Normal Bowel Sounds, Soft Edema: No Labs: CBC, BMP 07/23/18 07:52 07/23/18 07:52 INR, PTT INR 1.06 (0.83-1.09) 07/21/18 01:10 - ....Imaging EKG: Report Reviewed (Sarmad: SR PVC) Problem List - Problems (1) CHF (congestive heart failure) Code(s): I50.9 - HEART FAILURE, UNSPECIFIED Qualifiers: Heart failure type: systolic Heart failure chronicity: acute Qualified Code(s): I50.21 - Acute systolic (congestive) heart failure (2) Chest pain Code(s): R07.9 - CHEST PAIN, UNSPECIFIED Qualifiers: Chest pain type: unspecified Qualified Code(s): R07.9 - Chest pain, unspecified (3) Demand ischemia Code(s): I24.8 - OTHER FORMS OF ACUTE ISCHEMIC HEART DISEASE (4) Dyspnea Code(s): R06.00 - DYSPNEA, UNSPECIFIED Qualifiers: Dyspnea type: shortness of breath Qualified Code(s): R06.02 - Shortness of breath; R06.00 - Dyspnea, unspecified; R06.01 - Orthopnea (5) HTN (hypertension) Code(s): I10 - ESSENTIAL (PRIMARY) HYPERTENSION Qualifiers: Hypertension type: essential hypertension Qualified Code(s): I10 - Essential (primary) hypertension (6) Hypercholesterolemia Code(s): E78.00 - PURE HYPERCHOLESTEROLEMIA, UNSPECIFIED (7) Orthopnea Code(s): R06.01 - ORTHOPNEA Assessment/Plan Echo: Mod-severely decreased LVEF 30-35%, normal RV size and fxn, mild MR, mod LAE 1. Acute on chronic LV failure systolic +/- diastolic failure with class 2 NYHA classification failure resolving 2. Elevated troponin due to demand ischemia 3. Abnormal ECG with dilated cardiomyopathy rule out CAD 4. DM 5. HTN 6. Hypercholesterolemia 7. Anxiety PLAN: 1. Change to Lasix 20 qd and Aldactone 25 qd 2. Increase Carvedilol 6.25 bid and Losartan 25 qd and uptitrate. Consider Entresto as outpatient 3. Continiue ASA 81 qd, Lipitor 40 qd and follow fasting lipid panel 4. Further cardiac work up including cardiac catheterization is to be planned once euvolemic, to be arranged as outpatient 5. Lifevest until LV reassessment post 90 days
[2018-07-23] MEDS: ASPIRIN 81 MG CHEWABLE TABLETS PO SCH (09:54)
[2018-07-23] MEDS: CARVEDILOL 3.125 MG TABLET (FP) PO SCH (09:54)
[2018-07-23] MEDS: LOSARTAN POTASSIUM 25 MG TABLET PO SCH (09:54)
--- NOTE | 2018-07-23 10:12 | EKG ---
Test Reason : Blood Pressure : / mmHG Vent. Rate : 087 BPM Atrial Rate : 087 BPM P-R Int : 186 ms QRS Dur : 098 ms QT Int : 404 ms P-R-T Axes : 079 052 136 degrees QTc Int : 486 ms SINUS RHYTHM WITH FREQUENT PREMATURE VENTRICULAR COMPLEXES ANTERIOR INFARCT , AGE UNDETERMINED ABNORMAL ECG NO PREVIOUS ECGS AVAILABLE Confirmed by RIANNA BANKS MD ([id number]) on 07/23/2018 10:12:35 AM Referred By: VALENTINO GILES Confirmed By:RIANNA BANKS MD
[2018-07-23] MEDS ORDERED: CARVEDILOL 6.25 MG TABLET (FP) PO SCH ×2 (10:15→22:00)
[2018-07-23] MEDS ORDERED: SPIRONOLACTONE 25 MG TABLET (FP) PO SCH (10:15)
[2018-07-23] MEDS ORDERED: CARVEDILOL 3.125 MG TABLET (FP) PO ONE (11:15)
[2018-07-23] MEDS ORDERED: ALPRAZolam 0.25 MG TABLET PO PRN (11:30)
[2018-07-23 14:04] VITALS: BP 97/68; PULSE 85; TEMP 98.3
--- NOTE | 2018-07-23 15:32 | DS ---
Physical Exam: SUBJECTIVE: Patient seen and examined. Feels well, eager to go home. OBJECTIVE: Vital Signs Period Temp Pulse Resp BP Sys/Ceja Pulse Ox Last 24 Hr 97.9 F-98.3 F 62-93 16-20 97-110/58-68 94-98 PHYSICAL EXAM GENERAL: The patient is awake, alert, and fully oriented, in no acute distress. HEAD: Normal with no signs of trauma. EYES: PERRL, extraocular movements intact, sclera anicteric, conjunctiva clear. ENT: Ears normal, nares patent, oropharynx clear without exudates, moist mucous membranes. NECK: Trachea midline, full range of motion, supple. LUNGS: Breath sounds equal, clear to auscultation bilaterally, no wheezes, no crackles, no accessory muscle use. HEART: Regular rate and rhythm, S1, S2 without murmur, rub or gallop. ABDOMEN: Soft, nontender, nondistended, normoactive bowel sounds, no guarding, no rebound, no hepatosplenomegaly, no masses. EXTREMITIES: 2+ pulses, warm, well-perfused, no edema. NEUROLOGICAL: Cranial nerves II through XII grossly intact. Normal speech, gait not observed. PSYCH: Normal mood, normal affect. SKIN: Warm, dry, normal turgor, no rashes or lesions noted. LABS Laboratory Results - last 24 hr 07/22/18 07/22/18 07/23/18 18:30 21:27 05:38 WBC RBC Hgb Hct MCV MCH MCHC RDW Plt Count MPV Absolute Neuts (auto) Neutrophils % Lymphocytes % Monocytes % Eosinophils % Basophils % Sodium Potassium Chloride Carbon Dioxide Anion Gap BUN Creatinine Creat Clearance w eGFR POC Glucometer 124 144 108 Random Glucose Hemoglobin A1c % Calcium Magnesium Total Bilirubin AST ALT Alkaline Phosphatase Total Protein Albumin 07/23/18 07/23/18 07/23/18 07:52 07:52 11:16 WBC 7.6 RBC 5.19 Hgb 16.7 Hct 49.1 H MCV 94.5 MCH 32.2 MCHC 34.1 RDW 12.9 Plt Count 161 MPV 9.7 Absolute Neuts (auto) 4.4 Neutrophils % 57.8 Lymphocytes % 28.8 Monocytes % 10.3 H Eosinophils % 2.5 Basophils % 0.6 Sodium 138 Potassium 4.4 Chloride 103 Carbon Dioxide 25 Anion Gap 10 BUN 26 H Creatinine 1.2 Creat Clearance w eGFR > 60 POC Glucometer 99 Random Glucose 123 H Hemoglobin A1c % Calcium 9.3 Magnesium 2.1 Total Bilirubin 1.0 AST 21 ALT 36 Alkaline Phosphatase 80 Total Protein 6.9 Albumin 4.4 07/23/18 11:59 WBC RBC Hgb Hct MCV MCH MCHC RDW Plt Count MPV Absolute Neuts (auto) Neutrophils % Lymphocytes % Monocytes % Eosinophils % Basophils % Sodium Potassium Chloride Carbon Dioxide Anion Gap BUN Creatinine Creat Clearance w eGFR POC Glucometer Random Glucose Hemoglobin A1c % 6.2 Calcium Magnesium Total Bilirubin AST ALT Alkaline Phosphatase Total Protein Albumin HOSPITAL COURSE: This is a 48-year-old male with a history of NIDDM, HLD, and HTN who has not taken medications for the past year, who presented to the ED on 07/21 with dyspnea, chest pain, and cough. EKG was NSR with PVCs and lateral TWI. Initial troponin was 0.09, peaked at 0.1, downtrended to normal. Imaging: Echocardiogram 07/21: Moderate to severe global hypokinesis of the LV. Ef 30-35 %. CTA Chest 07/21: No PE. Bilateral pleural effusions. Mild mediastinal lymphadenopathy. Patient was newly daignosed with dilated cardiomyopathy and started on Lasix, aldactone, Entresto, carvedilol, atorvastatin, and ASA. Fingerstick blood glucoses remained near normal without medication and HgbA1C is 6.2. The patient was fitted for a LifeVest and will be promptly scheduled for outpatient cardiac catheterization. He is asymptomatic today and amenable to the plan. Followup instructions and return precautions reviewed. Date of Admission:07/21/18 Date of Discharge: 07/23/18 Minutes to complete discharge: 35 Discharge Summary Reason For Visit: SOB/ANXIETY Current Active Problems Anxiety (Chronic) CHF (congestive heart failure) (Chronic) HTN (hypertension) (Chronic) Hypercholesterolemia (Chronic) Type 2 diabetes mellitus (Chronic) Condition: Stable - Instructions Diet, Activity, Other Instructions: -Your new medication regimen has been sent to [facility] on [address]. It includes: -Lasix (diuretic) -Aldactone (diuretic) -Carvedilol (for blood pressure) -Entresto (for blood pressure/heart failure - take this instead of lisinopril ) -Aspirin -Lipitor (for cholesterol) -Call Dr. Braden's office tomorrow to ensure that a cardiac catheterization is scheduled for you at [facility] -Follow a low sodium diet -Avoid strenuous exercise for now -Wear the Life Vest as instructed -Return here for shortness of breath, chest pain, rapid weight gain, or any other concerning symptoms Referrals: Contreras Braden MD [Staff Physician] - (Cardiology) Disposition: HOME - Home Medications Comprehensive Discharge Medication List: Ambulatory Orders Aspirin EC 325 mg PO DAILY 08/29/11 Atenolol 5 mg PO DAILY 08/29/11 Cozaar 50 mg PO DAILY 08/29/11 Januvia 100 mg PO DAILY 08/29/11 Lipitor 40 mg PO DAILY 08/29/11 Metformin 500 mg PO BID 08/29/11 Aspirin [Aspir 81] 81 mg PO DAILY 09/10/12 Cholecalciferol (Vitamin D3) [Vitamin D-3] 2,000 unit PO DAILY capsule NK [No Known Home Medication] 07/20/18 This patient is new to me today: Yes Date on this admission: 07/23/18 Emergency Visit: Yes ED Registration Date: 07/21/18 Care time: The patient presented to the Emergency Department on the above date and was hospitalized for further evaluation of their emergent condition. Critical Care patient: No - Discharge Referral Referred to [facility] No
[2018-07-23] MEDS ORDERED: SACUBITRIL/VALSARTAN 24 MG-26 MG TABLET PO SCH (22:00)
[2018-07-24] MEDS ORDERED: FUROSEMIDE 20 MG TABLET (FP) PO SCH (10:00)
== END 2018-07-23 17:19 | disposition home or self-care (01) | DRG 293 ==
LOC: FER 23:57 → MERGE 07-21 03:10 → FM/S 07-21 03:10 → UNDOADMIN 07-21 06:04
PROVIDERS: ADMIT Internal Medicine; ATTEND Registered Nurse Emergency
DX: I11.0 Hypertensive heart disease with heart failure (principal); I50.23 Acute on chronic systolic (congestive) heart failure; I42.9 Cardiomyopathy, unspecified; F17.210 Nicotine dependence, cigarettes, uncomplicated; F12.10 Cannabis abuse, uncomplicated; E11.9 Type 2 diabetes mellitus without complications; E78.5 Hyperlipidemia, unspecified; F41.9 Anxiety disorder, unspecified; F41.0 Panic disorder [episodic paroxysmal anxiety]; Z79.84 Long term (current) use of oral hypoglycemic drugs
CPT/HCPCS: 36415; 71045-TC-FY; 71275-TC; 80048; 80053; 80061; 80307; 81003; 82550; 82962; 83036; 83735; 83880; 84443; 84484; 85025; 85027; 85379; 85610; 93005; 93306-TC; 94640; 99283-25; J1644